=== PATIENT | male | born 1955 | race African-American/Black ===

== ENCOUNTER 2017-05-18 17:39 | Inpatient (IN) | payer SELFPAY ==
[~2017-05-18] VITALS: Ht 175.3 cm; Wt 79.4 kg
[~2017-05-18 17:39] MED LIST: FUROSEMIDE20 M1 ORAL; KEPPRA500 M4 ORAL; NKM; PROPRANOLOL HCL10 MG ORAL; SPIRONALACTONE; SPIRONOLACTONE50 MG ORAL; UNOBMED; nka
[2017-05-18 18:10] VITALS: BP 168/68
--- NOTE | 2017-05-18 18:19 | Emergency Room Report ---
History of Present Illness General Chief Complaint: Altered Level of Consciousness Source: Patient, EMS Present Illness HPI 62-year-old male, unknown past medical history, been found on the street and brought by EMS. EMS states that he was found on the ground, awake, but not giving any information. Patient states that he lives alone, denies having any current medical problems, states that he used to take medication for seizure in the past. He is currently oriented to person only, does not know why he is in the emergency room. Currently denying any complaints. Denies any headache blurry vision nausea vomiting chest pain shortness of breath Allergies: Coded Allergies: No Known Allergies (Verified , 02/18/06) Patient History Past Medical History: see triage record Past Surgical History: none Pertinent Family History: none Reviewed Nursing Documentation: PMH: Agreed, PSxH: Agreed Nursing Documentation-PMH Hx Cardiac Problems: No Hx Hypertension: Yes Hx Asthma: Yes Hx Cancer: No Hx Gastrointestinal Problems: No Hx Neurological Problems: No - ? Hx Weakness: Yes Review of Systems All Other Systems: negative except mentioned in HPI Physical Exam Vital Signs Date Time Temp Pulse Resp B/P (MAP) Pulse Ox O2 Delivery O2 Flow Rate FiO2 05/18/17 17:41 98.1 110 18 160/100 98 Room Air Sp02 EP Interpretation: reviewed, normal General Appearance: other - Disheveled middle-aged male, confused, not acute distress Head: normocephalic, atraumatic Eyes: bilateral eye normal inspection, bilateral eye PERRL, bilateral eye EOMI ENT: normal ENT inspection, normal pharynx, normal voice, moist mucus membranes Neck: normal inspection, full range of motion, supple Respiratory: normal inspection, lungs clear, normal breath sounds, no respiratory distress, no retraction, no wheezing, speaking full sentences, chest symmetrical Cardiovascular #1: normal inspection, regular rate, rhythm, normal capillary refill Cardiovascular #2: 2+ radial (R), 2+ radial (L) Gastrointestinal: normal inspection, non tender, soft, non-distended, no guarding Musculoskeletal: normal inspection, back normal, normal range of motion, non- tender Neurologic: other - Oriented to person only, moving all 4 extremities spontaneously, good strength, cranial nerves are all intact Skin: normal inspection, normal color, no rash, warm/dry, well hydrated, normal turgor Medical Decision Making Diagnostic Impression: Primary Impression: Altered mental status ER Course 62-year-old male, found on ground, confused DDX hypovolemic/dehydration vs. cardiac vs. metabolic (hypoglycemia, hypoxia), vs neuro (seizure, CVA, intracranial bleed) versus psych versus alcohol or drug intoxication Plan: bgm, cbc, bmp, ekg, cxr CT head Toxicology labs ER course: Patient has remained hemodynamically stable during ED stay. Remains confused Disposition: Patient requires admission to telemetry. D/W hospitalist Please note that this Emergency Department Report was dictated using [employer] technology software, occasionally this can lead to erroneous entry secondary to interpretation by the dictation equipment EKG Diagnostic Results EP Interpretation: Yes Rate: Tachycardic Rhythm: NSR ST Segments: No acute changes ASA given to patient: No Rhythm Strip EP Interpretation: Yes Rate: 98 Rhythm: NSR, no PVCs, no ectopy Laboratory Tests Test 05/18/17 23:00 05/19/17 04:10 05/19/17 13:18 Arterial Blood pH 7.099 (7.350-7.450) Arterial Blood Partial Pressure CO2 45.4 mmHg (35.0-45.0) H Arterial Blood Partial Pressure O2 63.7 mmHg (75.0-100.0) L Arterial Blood HCO3 13.7 mmol/L (22.0-26.0) L Arterial Blood Oxygen Saturation 81.7 % (92.0-98.0) L Arterial Blood Base Excess -15.6 Yonathan Test Positive White Blood Count 7.2 K/UL (4.8-10.8) Red Blood Count 4.00 M/UL (4.70-6.10) L Hemoglobin 12.0 G/DL (14.2-18.0) L Hematocrit 36.9 % (42.0-52.0) L Mean Corpuscular Volume 92 FL (80-99) Mean Corpuscular Hemoglobin 29.9 PG (27.0-31.0) Mean Corpuscular Hemoglobin Concent 32.4 G/DL (32.0-36.0) Red Cell Distribution Width 15.2 % (11.6-14.8) H Platelet Count 97 K/UL (150-450) L Mean Platelet Volume 6.8 FL (6.5-10.1) Neutrophils (%) (Auto) % (45.0-75.0) Lymphocytes (%) (Auto) % (20.0-45.0) Monocytes (%) (Auto) % (1.0-10.0) Eosinophils (%) (Auto) % (0.0-3.0) Basophils (%) (Auto) % (0.0-2.0) Prothrombin Time 11.1 SEC (9.30-11.50) Prothrombin Time INR 1.1 (0.9-1.1) PTT 29 SEC (23-33) Sodium Level 135 MMOL/L (136-145) L Potassium Level 4.1 MMOL/L (3.5-5.1) Chloride Level 98 MMOL/L (98-107) Carbon Dioxide Level 24 MMOL/L (21-32) Anion Gap 13 mmol/L (5-15) Blood Urea Nitrogen 15 mg/dL (7-18) Creatinine 1.3 MG/DL (0.55-1.30) Estimate Glomerular Filtration Rate > 60 mL/min (>60) Glucose Level 110 MG/DL (74-106) H Calcium Level 9.2 MG/DL (8.5-10.1) Phosphorus Level 2.5 MG/DL (2.5-4.9) Magnesium Level 1.9 MG/DL (1.8-2.4) Total Bilirubin 1.1 MG/DL (0.2-1.0) H Direct Bilirubin 0.3 MG/DL (0.0-0.3) Aspartate Amino Transferase (AST) 51 U/L (15-37) H Alanine Aminotransferase (ALT) 24 U/L (12-78) Alkaline Phosphatase 140 U/L (46-116) H Total Protein 8.0 G/DL (6.4-8.2) Albumin 3.6 G/DL (3.4-5.0) Globulin 4.4 g/dL Albumin/Globulin Ratio 0.8 (1.0-2.7) L Ammonia 42 umol/L (11-32) H CT/MRI/US Diagnostic Results CT/MRI/US Diagnostic Results : Imaging Test Ordered: CT Head Impression Impression: No acute intracranial bleed, mass effect or edema. Moderate atrophy of the brain. Evidence of chronic small vessel disease involving white matter tracts. [facility] has communicated the preliminary results to the Emergency Department. Their findings are largely concordant with this report. Last Vital Signs Date Time Temp Pulse Resp B/P (MAP) Pulse Ox O2 Delivery O2 Flow Rate FiO2 05/18/17 17:41 98.1 110 18 160/100 98 Room Air Lesly Morris M.D. May 18, 2017 18:19
[2017-05-18 19:54] LABS: APPEARANCE,URINE CLEAR; KETONES,URINE 2+ (NEGATIVE); LEUKOCYTE ESTERASE ,URINE NEGATIVE (NEGATIVE); NITRITE,URINE NEGATIVE (NEGATIVE); PH,URINE 5 (4.5-8.0); PROTEIN,URINE 4+ (NEGATIVE); UROBILINOGEN,URINE 1 MG/DL (0.0-1.0)
[2017-05-18 20:10] VITALS: BP 162/89
[2017-05-18 20:10] LABS: BACTERIA,URINE FEW /HPF; SQUAMOUS EPITHELIAL CELL,UR FEW /LPF (NONE/OCC); WBC,URINE 0-2 /HPF (0 - 0)
[2017-05-18 20:15] LABS: MEAN CORPUSCULAR HEMOGLOBIN 28.6 PG (27.0-31.0); MEAN CORPUSCULAR HGB CONC 30.3 G/DL (32.0-36.0); MEAN CORPUSCULAR VOLUME 94 FL (80-99); MEAN PLATELET VOLUME 5.1 FL (6.5-10.1); PLATELET COUNT 101 K/UL (150-450); RED BLOOD COUNT 4.84 M/UL (4.70-6.10); RED CELL DISTRIBUTION WIDTH 15.2 % (11.6-14.8)
[2017-05-18 20:31] LABS: BAND NEUTROPHILS % (MANUAL) 0 % (0-8); BASOPHILS % (MANUAL) 0 % (0-2); EOSINOPHILS % (MANUAL) 1 % (0-3); LYMPHOCYTES % (MANUAL) 6 % (20-45); NEUTROPHILS % (MANUAL) 92 % (45-75); PLATELET ESTIMATE DECREASED; PLATELET MORPHOLOGY NORMAL; TOTAL CELLS COUNTED 100
[2017-05-18] MEDS ORDERED: Miralax 17gm pkt ORAL PRN (21:30)
[2017-05-18] MEDS ORDERED: Mylanta II UD 30ml ORAL PRN (21:30)
[2017-05-18] MEDS ORDERED: LORazepam Inj 2mg/ml 1ml IV PRN (21:30)
--- NOTE | 2017-05-18 21:47 | History and Physical ---
History of Present Illness General Date patient seen: May 18, 2017 Reason for Hospitalization: Altered Level of Consciousness Present Illness HPI 62-year-old male, unknown past medical history, been found on the street and brought by EMS. EMS states that he was found on the ground, awake, but not giving any information. Patient states that he lives alone, denies having any current medical problems, states that he used to take medication for seizure in the past. Pt is admitted for acute encephalopathy. Allergies: Coded Allergies: No Known Allergies (Verified , 02/18/06) Medication History Scheduled No Known Medications* (NKM - No Known Medications*), 0 ., (Reported) Discontinued Medications Levetiracetam (Keppra), 500 MG ORAL EVERY 12 HOURS, (Reported) Discontinued Reason: Pt stopped taking med Unable to Obtain Medications (Unable To Obtain Meds), (Reported) Discontinued Reason: Pt stopped taking med [Spironalactone], (Reported) Discontinued Reason: Pt stopped taking med Patient History Healthcare decision maker N Resuscitation status Advanced Directive on File Past Medical/Surgical History Past Medical/Surgical History: (1) liver cirrhosis Review of Systems All Other Systems: negative except mentioned in HPI Physical Exam General Appearance: WD/WN Lines, tubes and drains: peripheral HEENT: normocephalic, atraumatic Neck: non-tender, normal alignment Respiratory/Chest: chest wall non-tender, lungs clear Cardiovascular/Chest: normal peripheral pulses, normal rate Abdomen: normal bowel sounds, non tender Genitourinary/Rectal: normal genital exam Extremities: normal range of motion Skin Exam: normal pigmentation Last 24 Hour Vital Signs Date Time Temp Pulse Resp B/P (MAP) Pulse Ox O2 Delivery O2 Flow Rate FiO2 05/18/17 18:10 98.0 88 22 168/68 95 Room Air 05/18/17 17:41 98.1 110 18 160/100 98 Room Air Intake and Output 05/18/17 05/19/17 19:00 07:00 Intake Total 0 ml Balance 0 ml Intake Oral 0 ml Laboratory Tests Test 05/18/17 19:39 05/18/17 19:50 Urine Color Yellow Urine Appearance Clear Urine pH 5 (4.5-8.0) Urine Specific [place] 1.025 (1.005-1.035) Urine Protein 4+ (NEGATIVE) H Urine Glucose (UA) Negative (NEGATIVE) Urine Ketones 2+ (NEGATIVE) H Urine Occult Blood 4+ (NEGATIVE) H Urine Nitrite Negative (NEGATIVE) Urine Bilirubin Negative (NEGATIVE) Urine Urobilinogen 1 MG/DL (0.0-1.0) H Urine Leukocyte Esterase Negative (NEGATIVE) Urine RBC 5-10 /HPF (0 - 0) H Urine WBC 0-2 /HPF (0 - 0) Urine Squamous Epithelial Cells Few /LPF (NONE/OCC) Urine Bacteria Few /HPF (NONE) Urine Opiates Screen Negative (NEGATIVE) Urine Barbiturates Screen Negative (NEGATIVE) Phencyclidine (PCP) Screen Negative (NEGATIVE) Urine Amphetamines Screen Negative (NEGATIVE) Urine Benzodiazepines Screen Negative (NEGATIVE) Urine Cocaine Screen Negative (NEGATIVE) Urine Marijuana (THC) Screen Negative (NEGATIVE) White Blood Count 12.0 K/UL (4.8-10.8) H Red Blood Count 4.84 M/UL (4.70-6.10) Hemoglobin 13.8 G/DL (14.2-18.0) L Hematocrit 45.7 % (42.0-52.0) Mean Corpuscular Volume 94 FL (80-99) Mean Corpuscular Hemoglobin 28.6 PG (27.0-31.0) Mean Corpuscular Hemoglobin Concent 30.3 G/DL (32.0-36.0) L Red Cell Distribution Width 15.2 % (11.6-14.8) H Platelet Count 101 K/UL (150-450) L Mean Platelet Volume 5.1 FL (6.5-10.1) L Neutrophils (%) (Auto) % (45.0-75.0) Lymphocytes (%) (Auto) % (20.0-45.0) Monocytes (%) (Auto) % (1.0-10.0) Eosinophils (%) (Auto) % (0.0-3.0) Basophils (%) (Auto) % (0.0-2.0) Differential Total Cells Counted 100 Neutrophils % (Manual) 92 % (45-75) H Lymphocytes % (Manual) 6 % (20-45) L Monocytes % (Manual) 1 % (1-10) Eosinophils % (Manual) 1 % (0-3) Basophils % (Manual) 0 % (0-2) Band Neutrophils 0 % (0-8) Platelet Estimate Decreased L Platelet Morphology Normal Height (Feet): 5 Height (Inches): 9.00 Weight (Pounds): 175 Medications Current Medications Medications (Trade) Dose Ordered Sig/Yoanna Route PRN Reason Start Time Stop Time Status Last Admin Dose Admin Acetaminophen (Tylenol) 650 mg Q4H PRN ORAL fever 05/18/17 21:30 06/17/17 21:29 Al Hydroxide/Mg Hydroxide (Mylanta II) 30 ml Q6H PRN ORAL dyspepsia 05/18/17 21:30 06/17/17 21:29 Dextrose (Dextrose 50%) STAT PRN IV Hypoglycemia 05/18/17 21:30 06/17/17 21:29 Heparin Sodium (Porcine) (Heparin 5000 units/ml) 5,000 units EVERY 12 HOURS SUBQ 05/19/17 09:00 06/18/17 08:59 Lorazepam (Ativan 2mg/ml 1ml) 2 mg Q1H PRN IV seizures 05/18/17 21:30 05/25/17 21:29 Morphine Sulfate (Morphine Sulfate) 1 mg Q4H PRN IVP For Pain 05/18/17 21:30 05/25/17 21:29 Ondansetron HCl (Zofran) 4 mg Q6H PRN IVP Nausea & Vomiting 05/18/17 21:30 06/17/17 21:29 Polyethylene Glycol (Miralax) 17 gm HSPRN PRN ORAL Constipation 05/18/17 21:30 06/17/17 21:29 Zolpidem Tartrate (Ambien) 5 mg HSPRN PRN ORAL Insomnia 05/18/17 21:30 05/25/17 21:29 Assessment/Plan Problem List: (1) Altered mental status ICD Codes: R41.82 - Altered mental status, unspecified SNOMED: 606101776 (2) liver cirrhosis (3) History of seizure ICD Codes: Z87.898 - Personal history of other specified conditions SNOMED: 831990569 Assessment/Plan seizure precaution Neuro evaluation symptomatic treatment. LAURA CHAMPION May 18, 2017 21:47
[2017-05-18 22:01] LABS: ALANINE AMINOTRANSFERASE 26 U/L (12-78); ALBUMIN/GLOBULIN RATIO 0.7 (1.0-2.7); ALCOHOL < 3 mg/dL; ANION GAP 12 mmol/L (5-15); ASPARTATE AMINO TRANSFERASE 52 U/L (15-37); CALCIUM 9.4 MG/DL (8.5-10.1); CARBON DIOXIDE 25 MMOL/L (21-32); CHLORIDE 101 MMOL/L (98-107); CREATININE 1.3 MG/DL (0.55-1.30); GLOMERULAR FILTRATION RATE > 60 mL/min (>60); POTASSIUM 5.3 MMOL/L (3.5-5.1); SODIUM 138 MMOL/L (136-145); TOTAL PROTEIN 8.7 G/DL (6.4-8.2)
[2017-05-18 22:02] LABS: ACETAMINOPHEN < 2 MCG/ML (10-30); BILIRUBIN,DIRECT 0.3 MG/DL (0.0-0.3)
[2017-05-18 22:10] VITALS: BP 159/89
[2017-05-18 23:49] LABS: ABG PCO2 45.4 mmHg (35.0-45.0)
[2017-05-18 23:50] LABS: ABG ALLEN TEST POSITIVE; ABG BASE EXCESS -15.6
[2017-05-19] MEDS: Morphine Sulfate 2mg/ml Inj IVP PRN ×2 (01:14→05:17)
[2017-05-19 04:00] VITALS: BP 168/97
[2017-05-19 06:13] LABS: MEAN CORPUSCULAR HEMOGLOBIN 29.9 PG (27.0-31.0); MEAN CORPUSCULAR HGB CONC 32.4 G/DL (32.0-36.0); MEAN CORPUSCULAR VOLUME 92 FL (80-99); MEAN PLATELET VOLUME 6.8 FL (6.5-10.1); PLATELET COUNT 97 K/UL (150-450); RED CELL DISTRIBUTION WIDTH 15.2 % (11.6-14.8); WHITE BLOOD COUNT 7.2 K/UL (4.8-10.8)
[2017-05-19 06:50] LABS: INR 1.1 (0.9-1.1); PROTHROMBIN TIME 11.1 SEC (9.30-11.50)
[2017-05-19 07:20] LABS: ALANINE AMINOTRANSFERASE 24 U/L (12-78); ALBUMIN/GLOBULIN RATIO 0.8 (1.0-2.7); ANION GAP 13 mmol/L (5-15); ASPARTATE AMINO TRANSFERASE 51 U/L (15-37); CALCIUM 9.2 MG/DL (8.5-10.1); CARBON DIOXIDE 24 MMOL/L (21-32); CHLORIDE 98 MMOL/L (98-107); CREATININE 1.3 MG/DL (0.55-1.30); GLOMERULAR FILTRATION RATE > 60 mL/min (>60); MAGNESIUM 1.9 MG/DL (1.8-2.4); PHOSPHORUS 2.5 MG/DL (2.5-4.9); POTASSIUM 4.1 MMOL/L (3.5-5.1); SODIUM 135 MMOL/L (136-145)
[2017-05-19 07:34] LABS: BILIRUBIN,DIRECT 0.3 MG/DL (0.0-0.3)
[2017-05-19] MEDS: Heparin 5000 units/ml inj SUBQ SCH ×2 (08:27→22:00)
[2017-05-19 08:51] VITALS: BP 147/90
[2017-05-19] MEDS ORDERED: Morphine Sulfate 2mg/ml Inj IVP PRN (09:30)
--- NOTE | 2017-05-19 10:17 | Diagnostic Imaging Report ---
Indication: Altered mental status Technique: Contiguous 5 mm thick transaxial imaging of the head obtained in a Siemens Sensation [address] scanner. Soft tissue and bone windows generated. Automatic Exposure Control was utilized. Total Dose length Product (DLP): [address] Dose Index Volume (CTDIvol): 70.38, 0.15 mGy Comparison: 05/06/16 Findings: There is moderate prominence of the ventricles, basal cisterns, and cerebral sulci consistent with atrophy. Moderate, nonspecific, white matter hypoattenuation is noted throughout the brain consistent with chronic small vessel disease. There is no midline shift, edema, acute hemorrhage, mass effect, or abnormal extra-axial fluid collections. Bones and extra osseous soft tissues are unremarkable. Impression: No acute intracranial bleed, mass effect or edema. Moderate atrophy of the brain. Evidence of chronic small vessel disease involving white matter tracts. [facility] has communicated the preliminary results to the Emergency Department. Their findings are largely concordant with this report. The CT scanner at [facility] is accredited by the [employer] and the scans are performed using dose optimization techniques as appropriate to a performed exam including Automatic Exposure control.
[2017-05-19 11:32] VITALS: BP 153/104
[2017-05-19] MEDS ORDERED: LORazepam Inj 2mg/ml 1ml IV PRN (13:30)
--- NOTE | 2017-05-19 13:30 | Pulmonology Progress Note ---
Assessment/Plan Problems: (1) Altered mental status (2) liver cirrhosis (3) History of seizure Assessment/Plan neuro evaluation restart Keppra Ativan Prn Subjective ROS Limited/Unobtainable: No Interval Events: had one episode of seizures last night Allergies: Coded Allergies: No Known Allergies (Verified , 02/18/06) Objective Last 24 Hour Vital Signs Date Time Temp Pulse Resp B/P (MAP) Pulse Ox O2 Delivery O2 Flow Rate FiO2 05/19/17 11:32 98.3 92 21 153/104 99 Room Air 05/19/17 08:51 98.4 92 20 147/90 92 Room Air 05/19/17 04:00 98.6 88 19 168/97 97 Room Air 05/18/17 22:40 98.0 93 19 159/89 100 Room Air 05/18/17 22:10 97.9 93 19 159/89 100 Room Air 05/18/17 20:10 97.9 84 21 162/89 95 Room Air 05/18/17 18:10 98.0 88 22 168/68 95 Room Air 05/18/17 17:41 98.1 110 18 160/100 98 Room Air Intake and Output 05/19/17 05/20/17 19:00 07:00 Intake Total 760 ml Balance 760 ml Intake Oral 760 ml General Appearance: WD/WN HEENT: normocephalic, atraumatic Respiratory/Chest: chest wall non-tender, lungs clear Cardiovascular: normal peripheral pulses, normal rate Abdomen: normal bowel sounds, soft, non tender Genitourinary: normal external genitalia Extremities: no clubbing 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, no motor/sensory deficits Laboratory Tests 05/18/17 19:39: Urine Color Yellow, Urine Appearance Clear, Urine pH 5, Urine Specific [place] 1.025, Urine Protein 4+H, Urine Glucose (UA) Negative, Urine Ketones 2+H, Urine Occult Blood 4+H, Urine Nitrite Negative, Urine Bilirubin Negative, Urine Urobilinogen 1H, Urine Leukocyte Esterase Negative, Urine RBC 5-10H, Urine WBC 0 -2, Urine Squamous Epithelial Cells Few, Urine Bacteria Few, Urine Opiates Screen Negative, Urine Barbiturates Screen Negative, Phencyclidine (PCP) Screen Negative, Urine Amphetamines Screen Negative, Urine Benzodiazepines Screen Negative, Urine Cocaine Screen Negative, Urine Marijuana (THC) Screen Negative 05/18/17 19:50: White Blood Count 12.0H, Red Blood Count 4.84, Hemoglobin 13.8L, Hematocrit 45.7 , Mean Corpuscular Volume 94, Mean Corpuscular Hemoglobin 28.6, Mean Corpuscular Hemoglobin Concent 30.3L, Red Cell Distribution Width 15.2H, Platelet Count 101L, Mean Platelet Volume 5.1L, Neutrophils (%) (Auto) , Lymphocytes (%) (Auto) , Monocytes (%) (Auto) , Eosinophils (%) (Auto) , Basophils (%) (Auto) , Differential Total Cells Counted 100, Neutrophils % ( Manual) 92H, Lymphocytes % (Manual) 6L, Monocytes % (Manual) 1, Eosinophils % ( Manual) 1, Basophils % (Manual) 0, Band Neutrophils 0, Platelet Estimate DecreasedL, Platelet Morphology Normal 05/18/17 21:32: Sodium Level 138, Potassium Level 5.3H, Chloride Level 101, Carbon Dioxide Level 25, Anion Gap 12, Blood Urea Nitrogen 13, Creatinine 1.3, Estimat Glomerular Filtration Rate > 60, Glucose Level 127H, Calcium Level 9.4, Total Bilirubin 1.1H, Direct Bilirubin 0.3, Aspartate Amino Transf (AST/SGOT) 52H, Alanine Aminotransferase (ALT/SGPT) 26, Alkaline Phosphatase 152H, Total Creatine Kinase 381H, Total Protein 8.7H, Albumin 3.7, Globulin 5.0, Albumin/ Globulin Ratio 0.7L, Salicylates Level 1.3L, Acetaminophen Level < 2L, Serum Alcohol < 3 05/18/17 23:00: Arterial Blood pH 7.099*L, Arterial Blood Partial Pressure CO2 45.4H, Arterial Blood Partial Pressure O2 63.7L, Arterial Blood HCO3 13.7L, Arterial Blood Oxygen Saturation 81.7L, Arterial Blood Base Excess -15.6, Yonathan Test Positive 05/19/17 04:10: White Blood Count 7.2, Red Blood Count 4.00L, Hemoglobin 12.0L, Hematocrit 36.9L , Mean Corpuscular Volume 92, Mean Corpuscular Hemoglobin 29.9, Mean Corpuscular Hemoglobin Concent 32.4, Red Cell Distribution Width 15.2H, Platelet Count 97L, Mean Platelet Volume 6.8, Neutrophils (%) (Auto) , Lymphocytes (%) (Auto) , Monocytes (%) (Auto) , Eosinophils (%) (Auto) , Basophils (%) (Auto) , Prothrombin Time 11.1, Prothromb Time International Ratio 1.1, Activated Partial Thromboplast Time 29, Sodium Level 135L, Potassium Level 4.1, Chloride Level 98, Carbon Dioxide Level 24, Anion Gap 13, Blood Urea Nitrogen 15, Creatinine 1.3, Estimat Glomerular Filtration Rate > 60, Glucose Level 110H, Calcium Level 9.2, Phosphorus Level 2.5, Magnesium Level 1.9, Total Bilirubin 1.1H, Direct Bilirubin 0.3, Aspartate Amino Transf (AST/SGOT) 51H, Alanine Aminotransferase (ALT/SGPT) 24, Alkaline Phosphatase 140H, Total Protein 8.0, Albumin 3.6, Globulin 4.4, Albumin/Globulin Ratio 0.8L Current Medications Medications (Trade) Dose Ordered Sig/Yoanna Route PRN Reason Start Time Stop Time Status Last Admin Dose Admin Acetaminophen (Tylenol) 650 mg Q4H PRN ORAL fever 05/18/17 21:30 06/17/17 21:29 05/19/17 06:11 Al Hydroxide/Mg Hydroxide (Mylanta II) 30 ml Q6H PRN ORAL dyspepsia 05/18/17 21:30 06/17/17 21:29 Dextrose (Dextrose 50%) STAT PRN IV Hypoglycemia 05/18/17 21:30 06/17/17 21:29 Heparin Sodium (Porcine) (Heparin 5000 units/ml) 5,000 units EVERY 12 HOURS SUBQ 05/19/17 09:00 06/18/17 08:59 Lorazepam (Ativan 2mg/ml 1ml) 2 mg Q1H PRN IV seizures 05/18/17 21:30 05/25/17 21:29 Morphine Sulfate (Morphine Sulfate) 4 mg Q4H PRN IVP For Pain 05/19/17 09:30 05/26/17 09:29 Ondansetron HCl (Zofran) 4 mg Q6H PRN IVP Nausea & Vomiting 05/18/17 21:30 06/17/17 21:29 05/19/17 00:56 Polyethylene Glycol (Miralax) 17 gm HSPRN PRN ORAL Constipation 05/18/17 21:30 06/17/17 21:29 Zolpidem Tartrate (Ambien) 5 mg HSPRN PRN ORAL Insomnia 05/18/17 21:30 05/25/17 21:29 LAURA CHAMPION May 19, 2017 13:30
--- NOTE | 2017-05-19 14:37 | Neurology Progress Note ---
Interim History Interim History ROS Limited/Unobtainable: No Objective Physical Exam Last Vital Signs Date Time Temp Pulse Resp B/P (MAP) Pulse Ox O2 Delivery O2 Flow Rate FiO2 05/19/17 11:32 98.3 92 21 153/104 99 Room Air Laboratory Tests Test 05/18/17 19:39 05/18/17 19:50 05/18/17 21:32 05/18/17 23:00 Urine Color Yellow Urine Appearance Clear Urine pH 5 (4.5-8.0) Urine Specific [place] 1.025 (1.005-1.035) Urine Protein 4+ (NEGATIVE) H Urine Glucose (UA) Negative (NEGATIVE) Urine Ketones 2+ (NEGATIVE) H Urine Occult Blood 4+ (NEGATIVE) H Urine Nitrite Negative (NEGATIVE) Urine Bilirubin Negative (NEGATIVE) Urine Urobilinogen 1 MG/DL (0.0-1.0) H Urine Leukocyte Esterase Negative (NEGATIVE) Urine RBC 5-10 /HPF (0 - 0) H Urine WBC 0-2 /HPF (0 - 0) Urine Squamous Epithelial Cells Few /LPF (NONE/OCC) Urine Bacteria Few /HPF (NONE) Urine Opiates Screen Negative (NEGATIVE) Urine Barbiturates Screen Negative (NEGATIVE) Phencyclidine (PCP) Screen Negative (NEGATIVE) Urine Amphetamines Screen Negative (NEGATIVE) Urine Benzodiazepines Screen Negative (NEGATIVE) Urine Cocaine Screen Negative (NEGATIVE) Urine Marijuana (THC) Screen Negative (NEGATIVE) White Blood Count 12.0 K/UL (4.8-10.8) H Red Blood Count 4.84 M/UL (4.70-6.10) Hemoglobin 13.8 G/DL (14.2-18.0) L Hematocrit 45.7 % (42.0-52.0) Mean Corpuscular Volume 94 FL (80-99) Mean Corpuscular Hemoglobin 28.6 PG (27.0-31.0) Mean Corpuscular Hemoglobin Concent 30.3 G/DL (32.0-36.0) L Red Cell Distribution Width 15.2 % (11.6-14.8) H Platelet Count 101 K/UL (150-450) L Mean Platelet Volume 5.1 FL (6.5-10.1) L Neutrophils (%) (Auto) % (45.0-75.0) Lymphocytes (%) (Auto) % (20.0-45.0) Monocytes (%) (Auto) % (1.0-10.0) Eosinophils (%) (Auto) % (0.0-3.0) Basophils (%) (Auto) % (0.0-2.0) Differential Total Cells Counted 100 Neutrophils % (Manual) 92 % (45-75) H Lymphocytes % (Manual) 6 % (20-45) L Monocytes % (Manual) 1 % (1-10) Eosinophils % (Manual) 1 % (0-3) Basophils % (Manual) 0 % (0-2) Band Neutrophils 0 % (0-8) Platelet Estimate Decreased L Platelet Morphology Normal Sodium Level 138 MMOL/L (136-145) Potassium Level 5.3 MMOL/L (3.5-5.1) H Chloride Level 101 MMOL/L (98-107) Carbon Dioxide Level 25 MMOL/L (21-32) Anion Gap 12 mmol/L (5-15) Blood Urea Nitrogen 13 mg/dL (7-18) Creatinine 1.3 MG/DL (0.55-1.30) Estimat Glomerular Filtration Rate > 60 mL/min (>60) Glucose Level 127 MG/DL (74-106) H Calcium Level 9.4 MG/DL (8.5-10.1) Total Bilirubin 1.1 MG/DL (0.2-1.0) H Direct Bilirubin 0.3 MG/DL (0.0-0.3) Aspartate Amino Transf (AST/SGOT) 52 U/L (15-37) H Alanine Aminotransferase (ALT/SGPT) 26 U/L (12-78) Alkaline Phosphatase 152 U/L (46-116) H Total Creatine Kinase 381 U/L (26-308) H Total Protein 8.7 G/DL (6.4-8.2) H Albumin 3.7 G/DL (3.4-5.0) Globulin 5.0 g/dL Albumin/Globulin Ratio 0.7 (1.0-2.7) L Salicylates Level 1.3 ug/mL (2.8-20) L Acetaminophen Level < 2 MCG/ML (10-30) L Serum Alcohol < 3 mg/dL Arterial Blood pH 7.099 (7.350-7.450) Arterial Blood Partial Pressure CO2 45.4 mmHg (35.0-45.0) H Arterial Blood Partial Pressure O2 63.7 mmHg (75.0-100.0) L Arterial Blood HCO3 13.7 mmol/L (22.0-26.0) L Arterial Blood Oxygen Saturation 81.7 % (92.0-98.0) L Arterial Blood Base Excess -15.6 Yonathan Test Positive Test 05/19/17 04:10 White Blood Count 7.2 K/UL (4.8-10.8) Red Blood Count 4.00 M/UL (4.70-6.10) L Hemoglobin 12.0 G/DL (14.2-18.0) L Hematocrit 36.9 % (42.0-52.0) L Mean Corpuscular Volume 92 FL (80-99) Mean Corpuscular Hemoglobin 29.9 PG (27.0-31.0) Mean Corpuscular Hemoglobin Concent 32.4 G/DL (32.0-36.0) Red Cell Distribution Width 15.2 % (11.6-14.8) H Platelet Count 97 K/UL (150-450) L Mean Platelet Volume 6.8 FL (6.5-10.1) Neutrophils (%) (Auto) % (45.0-75.0) Lymphocytes (%) (Auto) % (20.0-45.0) Monocytes (%) (Auto) % (1.0-10.0) Eosinophils (%) (Auto) % (0.0-3.0) Basophils (%) (Auto) % (0.0-2.0) Prothrombin Time 11.1 SEC (9.30-11.50) Prothromb Time International Ratio 1.1 (0.9-1.1) Activated Partial Thromboplast Time 29 SEC (23-33) Sodium Level 135 MMOL/L (136-145) L Potassium Level 4.1 MMOL/L (3.5-5.1) Chloride Level 98 MMOL/L (98-107) Carbon Dioxide Level 24 MMOL/L (21-32) Anion Gap 13 mmol/L (5-15) Blood Urea Nitrogen 15 mg/dL (7-18) Creatinine 1.3 MG/DL (0.55-1.30) Estimat Glomerular Filtration Rate > 60 mL/min (>60) Glucose Level 110 MG/DL (74-106) H Calcium Level 9.2 MG/DL (8.5-10.1) Phosphorus Level 2.5 MG/DL (2.5-4.9) Magnesium Level 1.9 MG/DL (1.8-2.4) Total Bilirubin 1.1 MG/DL (0.2-1.0) H Direct Bilirubin 0.3 MG/DL (0.0-0.3) Aspartate Amino Transf (AST/SGOT) 51 U/L (15-37) H Alanine Aminotransferase (ALT/SGPT) 24 U/L (12-78) Alkaline Phosphatase 140 U/L (46-116) H Total Protein 8.0 G/DL (6.4-8.2) Albumin 3.6 G/DL (3.4-5.0) Globulin 4.4 g/dL Albumin/Globulin Ratio 0.8 (1.0-2.7) L Impression/Recommendations Problems: (1) chronic seizure disorder. exacerbation (2) noncompliance (3) HTN (hypertension), malignant (4) liver cirrhosis Status: unchanged Recommendations # [id number] TERRY MATTHEWS May 19, 2017 14:37
--- NOTE | 2017-05-19 15:38 | Cardiology Report ---
APPROVED REPORT EKG Measurement Heart [id number] Sinus tachycardia Possible Inferior infarct, age undetermined Possible Anterior infarct, age undetermined Abnormal ECG
[2017-05-19 16:00] VITALS: BP 161/100
--- NOTE | 2017-05-19 18:30 | Consultation ---
DATE OF CONSULTATION: 05/19/2017 NEUROLOGICAL CONSULTATION CONSULTING PHYSICIAN: Saul Corrales M.D. REQUESTING PHYSICIAN: Venus Garcia M.D. HISTORY OF PRESENT ILLNESS: This 62-year-old man seen in neurological consultation to evaluate the seizure disorder. According to the report by ambulance, the patient was found to be on the street and as per witnesses, he fell down and was having a generalized seizure. On arrival of paramedics, he was still postictal and was alert and oriented to name only. There were no obvious signs of injury. At this time, he was increasingly more alert. His vital signs included blood pressure 182/114, heart rate of 123, respirations 16. These went down to 164/101 and still heart rate of 111. On arrival, blood pressure remained high at 160/100 and a heart rate of 90. On admission, he was quite confused, would know why he is in the hospital, but he had no complaints. His toxicology lab was negative. Lab studies included potassium 5.3, glucose 127, total bilirubin of 1.1, and AST of 52. Elevated CPK 361 and total protein of 8.7. Coagulation panel was negative. Urinalysis, 2+ ketones and 4+ protein. His CBC study with elevated WBC 12.0 and platelet count 101. Blood gases with pH 7.099 and pCO2 44. CAT scan of the brain revealed a chronic small vessel disease involving white matter tract, moderate atrophy of the brain, but no evidence of acute abnormality and no evidence of trauma. EKG, normal sinus rhythm, no PVC, no ectopy. Following admission, the patient was started on Keppra 500 mg b.i.d., p.r.n. Ativan, morphine, Zofran, and zolpidem. Last night, the patient was observed to have a brief 2 to 3 minutes of generalized seizure episode. The patient was amnestic on event. PAST MEDICAL HISTORY: The patient was able to indicate that he had been suffering from hypertension and bronchial asthma, but after having treatment, he became cured and so, he does not take any medications. He also mentioned that he had a seizure episode about 10 years ago. He has no recollection of what medication was given an d he is not sure if he ever had any more seizures. He was unable to identify that he had a seizure last night or on admission. 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 In 2016, the patient was hospitalized for recurrent seizures. He had a neurological evaluation. The history was also somewhat vague. The patient apparently had a previous seizure, which was related to alcohol abuse, but readmitted after having seizures. The patient described having liver disease and hypertension. On examination, there was an issue of recent and remote memory. He was walking somewhat with a wide base. His workup at that time included electroencephalogram revealing no ongoing seizure event and MRI of the brain, no mass lesions. The patient was found to have delirium. Apparently, he had a previous hospitalization for confusion and agitation. The patient was described as behaving in a psychotic manner. He was recommended to continue with Keppra 500 mg twice a day. ALLERGIES: None reported. SOCIAL HISTORY: The patient reports he lives alone. He has a daughter who lives in city and he has good relationship with her. FAMILY HISTORY: Unavailable. Apparently, he is unaware that someone has seizure disorder. PHYSICAL EXAMINATION: GENERAL: A well-developed, well-nourished man, not in acute distress. VITAL SIGNS: Stable, but elevated blood pressure 153/104. Temperature 98.3. HEENT: Head, normocephalic. No evidence of injuries. Eyes, ears, and throat are clear. NECK: Supple. No meningeal signs. MUSCULOSKELETAL EXAMINATION: Unremarkable. There are no deformities. Peripheral pulses 1+ and symmetric. MENTAL STATUS: The patient is alert and oriented to his name, but states his age is 56. He stated that he is unaware what place he is in now. He is unaware of having seizures. He is stating that the year is 2011. The patient admitted that he appears to have some memory problems. He was cooperative and followed command. CRANIAL NERVE II: Pupils both responding to light and accommodation. Extraocular movements intact. No nystagmus. CRANIAL NERVE V: Normal corneal responses. CRANIAL NERVE VII: No facial asymmetry. CRANIAL NERVE VIII: Grossly normal hearing. CRANIAL NERVE IX THROUGH XII: Within normal limits. MOTOR EXAMINATION: Normal muscle tone. Strength 5/5 in all extremities. No involuntary movement. Deep tendon reflexes 1+ and symmetric with downgoing toes on both sides. SENSORY EXAM: Normal to pinprick and light touch. GAIT: Slow, but stable. IMPRESSION: 1. Chronic seizure disorder exacerbation due to noncompliance. 2. Chronic psychiatric disorder, now presenting with cognitive loss. 3. Ischemic cerebrovascular disease, probably hypertensive angiopathy. 4. Hypertension, poor control. DISCUSSION: The patient is confused, disoriented, has significant cognitive deficiency, developing seizure, and apparently being noncompliant with offered treatment. He has a previously diagnosed psychiatric disorder and liver cirrhosis, probably related to previous history of alcohol abuse. The patient does not display sufficient cognitive level to live alone. 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 Meanwhile, the patient will continue with Keppra 500 mg b.i.d. and develop a better blood pressure control, which is deferred to treating physician. Thank you for allowing me to see this interesting patient in neurological consultation. Saul Corrales M.D. DR: KEO JOB#: [id number] CC:
[2017-05-19 20:57] VITALS: BP 144/90
[2017-05-19] MEDS ORDERED: Haloperidol Decanoate 50mg Inj IM PRN (21:45)
[2017-05-19] MEDS: Haloperidol 5mg/ml Inj IM PRN (21:58)
[2017-05-19] MEDS: Zolpidem 5mg tab ORAL PRN (23:47)
[2017-05-20 00:53] VITALS: BP 140/92
[2017-05-20 04:45] VITALS: BP 138/86
[2017-05-20] MEDS: Haloperidol 5mg/ml Inj IM PRN (06:04)
[2017-05-20] MEDS ORDERED: Haloperidol 5mg/ml Inj IM PRN (07:00)
[2017-05-20 08:30] VITALS: BP 142/85
[2017-05-20] MEDS: Heparin 5000 units/ml inj SUBQ SCH ×2 (09:00→20:25)
--- NOTE | 2017-05-20 11:24 | GI Initial Consult Note ---
History of Present Illness General Date patient seen: May 20, 2017 Time patient seen: 11:23 Reason for Hospitalization: Altered Level of Consciousness Referring physician: LAURA DICKSON Reason for Consultation: ANEMIA Present Illness HPI 62-year-old male, unknown past medical history, been found on the street and brought by EMS. EMS states that he was found on the ground, awake, but not giving any information. Patient states that he lives alone, denies having any current medical problems, states that he used to take medication for seizure in the past. He is currently oriented to person only, does not know why he is in the emergency room. Currently denying any complaints. Denies any headache blurry vision nausea vomiting chest pain shortness of breath GI consulted for anemia. HPI as noted above. ROS limited, patient agitated. No noted active N/V/D noted. Patient presents with mild anemia, elevated alk phos, elevated ammonia. Utox unremarkable. Unknown history of endoscopic / colonoscopies. Home Meds Reported Medications No Known Medications* (NKM - No Known Medications*) ., 0 ., 0 Refills 04/13/13 Discontinued Reported Medications Levetiracetam (KEPPRA) 500 Mg Tablet, 500 MG ORAL EVERY 12 HOURS, #60 TAB 0 Refills 05/13/16 Unable to Obtain Medications (UNABLE TO OBTAIN MEDS) 1 Ea Ea 05/06/16 [Spironalactone] No Conflict Check 06/08/13 Med list reviewed/reconciled: Yes Allergies: Coded Allergies: No Known Allergies (Verified , 02/18/06) Patient History History Provided By: Medical Record PMH Narrative Past Medical History: see triage record Past Surgical History: none Pertinent Family History: none Reviewed Nursing Documentation: PMH: Agreed, PSxH: Agreed Nursing Documentation-PMH Hx Cardiac Problems: No Hx Hypertension: Yes Hx Asthma: Yes Hx Cancer: No Hx Gastrointestinal Problems: No Hx Neurological Problems: No - ? Hx Weakness: Yes 1. Thrombocytopenia, likely secondary to underlying infection, is stable 2. Anemia secondary to chronic disease 3. Decreased hemoglobin and hematocrit, rule out gastrointestinal bleed 4. Leukopenia potentially secondary to infection vs less likely medications 5. Seizure disorder. 6. Alcohol abuse history. 7. Potential splenic sequestration. Social History: Reports: alcohol use - history of ETOH abuse Review of Systems All Other Systems: limited Physical Exam Vital Signs Date Time Temp Pulse Resp B/P (MAP) Pulse Ox O2 Delivery O2 Flow Rate FiO2 05/18/17 17:41 98.1 110 18 160/100 98 Room Air Sp02 EP Interpretation: reviewed, normal Labs Laboratory Tests Test 05/19/17 13:18 Ammonia 42 umol/L (11-32) H General Appearance: no apparent distress, alert, other - confused Head: normocephalic EENT: PERRL/EOMI, normal ENT inspection Neck: supple Respiratory: normal breath sounds, no respiratory distress Cardiovascular: normal rate Gastrointestinal: normal inspection, non tender, soft, normal bowel sounds, non -distended Rectal: deferred Genitourinary: deferred Musculoskeletal: normal inspection, back normal Neurologic: normal inspection, alert, oriented x3, responsive Psychiatric: normal inspection, judgement/insight normal, memory normal Skin: normal inspection, normal color, no rash, warm/dry, palpation normal, well hydrated Lymphatic: normal inspection, no adenopathy Current Medications Current Medications Medications (Trade) Dose Ordered Sig/Yoanna Route PRN Reason Start Time Stop Time Status Last Admin Dose Admin Acetaminophen (Tylenol) 650 mg Q4H PRN ORAL fever 05/18/17 21:30 06/17/17 21:29 05/19/17 06:11 Al Hydroxide/Mg Hydroxide (Mylanta II) 30 ml Q6H PRN ORAL dyspepsia 05/18/17 21:30 06/17/17 21:29 Amlodipine Besylate (Norvasc) 5 mg DAILY ORAL 05/20/17 09:00 06/19/17 08:59 05/20/17 11:09 Dextrose (Dextrose 50%) STAT PRN IV Hypoglycemia 05/18/17 21:30 06/17/17 21:29 Haloperidol Lactate (Haldol) 5 mg Q2H PRN IM agitation 05/20/17 07:00 06/19/17 06:59 Heparin Sodium (Porcine) (Heparin 5000 units/ml) 5,000 units EVERY 12 HOURS SUBQ 05/19/17 09:00 06/18/17 08:59 Levetiracetam (Keppra) 1,000 mg Q12HR ORAL 05/19/17 21:00 06/18/17 20:59 05/20/17 11:09 Lorazepam (Ativan 2mg/ml 1ml) 2 mg Q4H PRN IV seizure 05/19/17 13:30 05/26/17 13:29 05/19/17 23:38 Morphine Sulfate (Morphine Sulfate) 4 mg Q4H PRN IVP For Pain 05/19/17 09:30 05/26/17 09:29 Ondansetron HCl (Zofran) 4 mg Q6H PRN IVP Nausea & Vomiting 05/18/17 21:30 06/17/17 21:29 05/19/17 00:56 Polyethylene Glycol (Miralax) 17 gm HSPRN PRN ORAL Constipation 05/18/17 21:30 06/17/17 21:29 Zolpidem Tartrate (Ambien) 5 mg HSPRN PRN ORAL Insomnia 05/18/17 21:30 05/25/17 21:29 05/19/17 23:47 GI: Plan Problems: (1) liver cirrhosis (2) noncompliance (3) Combative behavior (4) Anemia Plan utox negative elevated ammonia head CT reviewed >> negative HIV neg, hepatitis panel negative (previous admission) supportive care / symptomatic treatment OB stool r/o GI bleed monitor H&H, prn transfusions bowel regime ppi adv to low sodium diet avoid ETOH fu labs, ammonia >> will consider lactulose Discussed with Dr. Arriola. Thank you for this patient referral, we will follow. Christina Hollingsworth N.P. May 20, 2017 11:24
[2017-05-20 11:45] VITALS: BP 152/87
--- NOTE | 2017-05-20 12:39 | Neurology Progress Note ---
Interim History Interim History ROS Limited/Unobtainable: Yes Complaints: none Events: became psychotic Objective Physical Exam Last Vital Signs Date Time Temp Pulse Resp B/P (MAP) Pulse Ox O2 Delivery O2 Flow Rate FiO2 05/20/17 11:09 87 148/88 05/20/17 04:45 98.7 19 96 Room Air Laboratory Tests Test 05/19/17 13:18 Ammonia 42 umol/L (11-32) H General: well developed, well nourished, no acute distress Head: normocophalic, atraumatic Neck: no rigidity Neurologic Exam Mental Status: awake, alert, other - i dont like what you do to me Speech: normal speech, no dysarthia Language: normal language, no aphasia Cranial Nerve II: no papilledema Cranial Nerves III, IV, : PERRLA, EOMI, pupils Cranial Nerve V: temporales function normal Cranial Nerve VII: normal facial expressions Cranial Nerve VIII: no nystagmus Cranial Nerve IX: gag response Cranial Nerve XI: trapezii function normal Cranial Nerve XII: tongue midline, no tongue atrophy/fasciculations Motor System: normal muscle tone, strength 5/5, no involuntary movement, no muscle wasting Sensory: normal pinprick Coordination: other Deep Tendon Reflexes: 0 bicep (L), 0 bicep (R), 0 tricep (L), 0 tricep (R), 0 brachioradialis (L), 0 brachioradialis (R), 0 knee (L), 0 knee (R), 0 ankle (L) , 0 ankle (R) Reflexes: mute plantar (L), mute plantar (R) Impression/Recommendations Problems: (1) chronic seizure disorder. exacerbation (2) noncompliance (3) HTN (hypertension), malignant (4) liver cirrhosis Status: unchanged Recommendations # [id number] now acute paranoid psychosis to see psych cont [id number] seroquel 25 bid TERRY MATTHEWS May 20, 2017 12:39
--- NOTE | 2017-05-20 12:42 | Pulmonology Progress Note ---
Assessment/Plan Problems: (1) Altered mental status (2) liver cirrhosis (3) History of seizure Assessment/Plan psych and neuro evaluation appreciated restart Keppra Subjective ROS Limited/Unobtainable: No Constitutional: Reports: no symptoms HEENT: Repors: no symptoms Respiratory: Reports: no symptoms Allergies: Coded Allergies: No Known Allergies (Verified , 02/18/06) Objective Last 24 Hour Vital Signs Date Time Temp Pulse Resp B/P (MAP) Pulse Ox O2 Delivery O2 Flow Rate FiO2 05/20/17 11:09 87 148/88 05/20/17 04:45 98.7 81 19 138/86 96 Room Air 05/20/17 00:53 98.2 99 21 140/92 99 Room Air 05/19/17 20:57 98.4 94 20 144/90 98 Room Air 05/19/17 16:00 98.7 93 20 161/100 96 Room Air 05/19/17 14:50 92 153/104 General Appearance: WD/WN HEENT: normocephalic, atraumatic Respiratory/Chest: chest wall non-tender, lungs clear Cardiovascular: normal peripheral pulses, regular rhythm Abdomen: soft, non tender Laboratory Tests 05/19/17 13:18: Ammonia 42H Current Medications Medications (Trade) Dose Ordered Sig/Yoanna Route PRN Reason Start Time Stop Time Status Last Admin Dose Admin Acetaminophen (Tylenol) 650 mg Q4H PRN ORAL fever 05/18/17 21:30 06/17/17 21:29 05/19/17 06:11 Al Hydroxide/Mg Hydroxide (Mylanta II) 30 ml Q6H PRN ORAL dyspepsia 05/18/17 21:30 06/17/17 21:29 Amlodipine Besylate (Norvasc) 5 mg DAILY ORAL 05/20/17 09:00 06/19/17 08:59 05/20/17 11:09 Dextrose (Dextrose 50%) STAT PRN IV Hypoglycemia 05/18/17 21:30 06/17/17 21:29 Haloperidol Lactate (Haldol) 5 mg Q2H PRN IM agitation 05/20/17 07:00 06/19/17 06:59 Heparin Sodium (Porcine) (Heparin 5000 units/ml) 5,000 units EVERY 12 HOURS SUBQ 05/19/17 09:00 06/18/17 08:59 Levetiracetam (Keppra) 1,000 mg Q12HR ORAL 05/19/17 21:00 06/18/17 20:59 05/20/17 11:09 Lorazepam (Ativan 2mg/ml 1ml) 2 mg Q4H PRN IV seizure 05/19/17 13:30 05/26/17 13:29 05/19/17 23:38 Morphine Sulfate (Morphine Sulfate) 4 mg Q4H PRN IVP For Pain 05/19/17 09:30 05/26/17 09:29 Ondansetron HCl (Zofran) 4 mg Q6H PRN IVP Nausea & Vomiting 05/18/17 21:30 06/17/17 21:29 05/19/17 00:56 Polyethylene Glycol (Miralax) 17 gm HSPRN PRN ORAL Constipation 05/18/17 21:30 06/17/17 21:29 Quetiapine Fumarate (SEROquel) 25 mg Q12HR ORAL 05/20/17 21:00 06/19/17 20:59 Zolpidem Tartrate (Ambien) 5 mg HSPRN PRN ORAL Insomnia 05/18/17 21:30 05/25/17 21:29 05/19/17 23:47 LAURA CHAMPION May 20, 2017 12:42
[2017-05-20 16:00] VITALS: BP 144/93
--- NOTE | 2017-05-20 16:25 | Consultation ---
History of Present Illness General Chief Complaint: Altered Level of Consciousness Referring physician: LAURA DICKSON Reason for Consultation: ANEMIA Present Illness HPI 62-year-old male, unknown past medical history, been found on the street and brought by EMS. EMS states that he was found on the ground, awake, but not giving any information. During the eval he was uncooperative and was not providing hx. he was agitated last night and was irrational and attempted to leave to leave. Allergies: Coded Allergies: No Known Allergies (Verified , 02/18/06) Medication History Scheduled No Known Medications* (NKM - No Known Medications*), 0 ., (Reported) Discontinued Medications Levetiracetam (Keppra), 500 MG ORAL EVERY 12 HOURS, (Reported) Discontinued Reason: Pt stopped taking med Unable to Obtain Medications (Unable To Obtain Meds), (Reported) Discontinued Reason: Pt stopped taking med [Spironalactone], (Reported) Discontinued Reason: Pt stopped taking med Patient History History Provided By: Patient, Significant Other, PMD Healthcare decision maker N Resuscitation status Full Code Advanced Directive on File Past Medical/Surgical History Past Medical/Surgical History: (1) [id number] (2) [id number] (3) Dizziness (4) Failure to thrive (5) Dehydration (6) failure thrived (7) Ascites (8) [id number] (9) [id number] (10) Failure to thrive (11) Malnutrition (12) Ascites (13) Ascites (14) Hiatal hernia (15) Weakness (16) failure thrived (17) liver cirrhosis (18) Altered mental status (19) liver cirrhosis (20) History of seizure (21) HTN (hypertension), malignant (22) noncompliance (23) chronic seizure disorder. exacerbation (24) Anemia (25) Combative behavior Review of Systems Psychiatric: Reports: prior hx, anxiety, depressed feelings, emotional problems Physical Exam General Appearance: no apparent distress, alert Neurologic: alert, oriented x 3, responsive, normal mood/affect Last 24 Hour Vital Signs Date Time Temp Pulse Resp B/P (MAP) Pulse Ox O2 Delivery O2 Flow Rate FiO2 05/20/17 11:45 98.4 91 18 152/87 97 Room Air 05/20/17 11:09 87 148/88 05/20/17 08:30 98.2 85 17 142/85 97 Room Air 05/20/17 04:45 98.7 81 19 138/86 96 Room Air 05/20/17 00:53 98.2 99 21 140/92 99 Room Air 05/19/17 20:57 98.4 94 20 144/90 98 Room Air Height (Feet): 5 Height (Inches): 9.00 Weight (Pounds): 175 Medications Current Medications Medications (Trade) Dose Ordered Sig/Yoanna Route PRN Reason Start Time Stop Time Status Last Admin Dose Admin Acetaminophen (Tylenol) 650 mg Q4H PRN ORAL fever 05/18/17 21:30 06/17/17 21:29 05/19/17 06:11 Al Hydroxide/Mg Hydroxide (Mylanta II) 30 ml Q6H PRN ORAL dyspepsia 05/18/17 21:30 06/17/17 21:29 Amlodipine Besylate (Norvasc) 5 mg DAILY ORAL 05/20/17 09:00 06/19/17 08:59 05/20/17 11:09 Dextrose (Dextrose 50%) STAT PRN IV Hypoglycemia 05/18/17 21:30 06/17/17 21:29 Divalproex Sodium (Depakote ER) 750 mg QHS ORAL 05/20/17 21:00 06/19/17 20:59 Haloperidol Lactate (Haldol) 5 mg Q2H PRN IM agitation 05/20/17 07:00 06/19/17 06:59 Heparin Sodium (Porcine) (Heparin 5000 units/ml) 5,000 units EVERY 12 HOURS SUBQ 05/19/17 09:00 06/18/17 08:59 Levetiracetam (Keppra) 1,000 mg Q12HR ORAL 05/19/17 21:00 06/18/17 20:59 05/20/17 11:09 Lorazepam (Ativan 2mg/ml 1ml) 2 mg Q4H PRN IV seizure 05/19/17 13:30 05/26/17 13:29 05/19/17 23:38 Morphine Sulfate (Morphine Sulfate) 4 mg Q4H PRN IVP For Pain 05/19/17 09:30 05/26/17 09:29 Olanzapine (ZyPREXA) 10 mg QHS ORAL 05/20/17 21:00 06/19/17 20:59 Ondansetron HCl (Zofran) 4 mg Q6H PRN IVP Nausea & Vomiting 05/18/17 21:30 06/17/17 21:29 05/19/17 00:56 Polyethylene Glycol (Miralax) 17 gm HSPRN PRN ORAL Constipation 05/18/17 21:30 06/17/17 21:29 Quetiapine Fumarate (SEROquel) 25 mg Q12HR ORAL 05/20/17 14:45 06/19/17 14:44 05/20/17 16:17 Zolpidem Tartrate (Ambien) 5 mg HSPRN PRN ORAL Insomnia 05/18/17 21:30 05/25/17 21:29 05/19/17 23:47 Assessment/Plan Assessment/Plan psychotic d/o depakote Thu Trevino M.D. May 20, 2017 16:25
[2017-05-20] MEDS: Depakote ER 250mg tab ORAL SCH (20:26)
[2017-05-20 20:34] VITALS: BP 147/94
[2017-05-21 00:24] VITALS: BP 140/80
[2017-05-21 04:36] VITALS: BP 143/88
[2017-05-21 08:25] VITALS: BP 142/98
[2017-05-21] MEDS: Heparin 5000 units/ml inj SUBQ SCH (09:00)
[2017-05-21] MEDS ORDERED: SEROQUEL25 MG ORAL (10:40)
[2017-05-21] MEDS ORDERED: DEPAKOTE ER250 MG ORAL (10:40)
[2017-05-21] MEDS ORDERED: OLANZAPINE5 MG ORAL (10:40)
[2017-05-21] MEDS ORDERED: KEPPRA500 M3 ORAL (10:40)
--- NOTE | 2017-05-21 10:42 | Pulmonology Progress Note ---
Assessment/Plan Problems: (1) Altered mental status (2) liver cirrhosis (3) History of seizure Assessment/Plan psych and neuro evaluation appreciated all reviewed dc home with close f/u with PMD prescription given Subjective ROS Limited/Unobtainable: No Interval Events: no seizures, feeling uch better Allergies: Coded Allergies: No Known Allergies (Verified , 02/18/06) Objective Last 24 Hour Vital Signs Date Time Temp Pulse Resp B/P (MAP) Pulse Ox O2 Delivery O2 Flow Rate FiO2 05/21/17 10:16 93 142/98 05/21/17 08:25 97.7 93 20 142/98 100 05/21/17 04:36 98.1 90 17 143/88 98 05/21/17 00:24 97.9 92 18 140/80 96 Room Air 05/20/17 20:34 98.1 114 17 147/94 100 Room Air 05/20/17 16:00 98.0 87 18 144/93 97 Room Air 05/20/17 11:45 98.4 91 18 152/87 97 Room Air 05/20/17 11:09 87 148/88 Intake and Output 05/21/17 05/22/17 19:00 07:00 Intake Total 420 ml Balance 420 ml Intake Oral 420 ml # Voids 1 General Appearance: WD/WN HEENT: normocephalic, anicteric Respiratory/Chest: chest wall non-tender, normal breath sounds Cardiovascular: normal peripheral pulses, normal rate Abdomen: normal bowel sounds, soft, non tender Genitourinary: normal external genitalia Skin: no rash Current Medications Medications (Trade) Dose Ordered Sig/Yoanna Route PRN Reason Start Time Stop Time Status Last Admin Dose Admin Acetaminophen (Tylenol) 650 mg Q4H PRN ORAL fever 05/18/17 21:30 06/17/17 21:29 05/19/17 06:11 Al Hydroxide/Mg Hydroxide (Mylanta II) 30 ml Q6H PRN ORAL dyspepsia 05/18/17 21:30 06/17/17 21:29 Amlodipine Besylate (Norvasc) 5 mg DAILY ORAL 05/20/17 09:00 06/19/17 08:59 05/21/17 10:16 Dextrose (Dextrose 50%) STAT PRN IV Hypoglycemia 05/18/17 21:30 06/17/17 21:29 Divalproex Sodium (Depakote ER) 750 mg QHS ORAL 05/20/17 21:00 06/19/17 20:59 05/20/17 20:26 Haloperidol Lactate (Haldol) 5 mg Q2H PRN IM agitation 05/20/17 07:00 06/19/17 06:59 Heparin Sodium (Porcine) (Heparin 5000 units/ml) 5,000 units EVERY 12 HOURS SUBQ 05/19/17 09:00 06/18/17 08:59 Levetiracetam (Keppra) 1,000 mg Q12HR ORAL 05/19/17 21:00 06/18/17 20:59 05/21/17 10:16 Lorazepam (Ativan 2mg/ml 1ml) 2 mg Q4H PRN IV seizure 05/19/17 13:30 05/26/17 13:29 05/19/17 23:38 Morphine Sulfate (Morphine Sulfate) 4 mg Q4H PRN IVP For Pain 05/19/17 09:30 05/26/17 09:29 Olanzapine (ZyPREXA) 10 mg QHS ORAL 05/20/17 21:00 06/19/17 20:59 05/20/17 20:26 Ondansetron HCl (Zofran) 4 mg Q6H PRN IVP Nausea & Vomiting 05/18/17 21:30 06/17/17 21:29 05/19/17 00:56 Polyethylene Glycol (Miralax) 17 gm HSPRN PRN ORAL Constipation 05/18/17 21:30 06/17/17 21:29 Quetiapine Fumarate (SEROquel) 25 mg Q12HR ORAL 05/20/17 14:45 06/19/17 14:44 05/21/17 10:16 Zolpidem Tartrate (Ambien) 5 mg HSPRN PRN ORAL Insomnia 05/18/17 21:30 05/25/17 21:29 05/19/17 23:47 LAURA CHAMPION May 21, 2017 10:42
[2017-05-21 12:33] VITALS: BP 141/97
[2017-05-21 16:07] VITALS: BP 122/82
[2017-05-21 20:00] VITALS: BP 132/80
[2017-05-21] MEDS: Depakote ER 250mg tab ORAL SCH (21:05)
[2017-05-22] VITALS: BP 159/95
[2017-05-22] MEDS: Zolpidem 5mg tab ORAL PRN (02:44)
[2017-05-22 04:00] VITALS: BP 154/95
--- NOTE | 2017-05-22 07:12 | General Progress Note ---
Assessment/Plan Problem List: (1) Hiatal hernia (2) Ascites (3) HTN (hypertension), malignant ICD Codes: I10 - Essential (primary) hypertension SNOMED: 16004359 (4) chronic seizure disorder. exacerbation (5) Anemia (6) liver cirrhosis Assessment/Plan stable labs tolerating diet pending possible dc today Subjective ROS Limited/Unobtainable: Yes Allergies: Coded Allergies: No Known Allergies (Verified , 02/18/06) Subjective wants to go home Objective Last 24 Hour Vital Signs Date Time Temp Pulse Resp B/P (MAP) Pulse Ox O2 Delivery O2 Flow Rate FiO2 05/22/17 04:00 98.0 96 20 154/95 98 Room Air 05/22/17 00:00 98.2 96 20 159/95 99 Room Air 05/21/17 20:00 98.7 99 22 132/80 97 Room Air 05/21/17 16:07 97.6 94 20 122/82 96 05/21/17 12:33 98.1 88 20 141/97 100 05/21/17 10:16 93 142/98 05/21/17 08:25 97.7 93 20 142/98 100 Height (Feet): 5 Height (Inches): 9.00 Weight (Pounds): 175 General Appearance: alert EENT: normal ENT inspection Neck: supple Cardiovascular: normal rate Respiratory/Chest: decreased breath sounds Abdomen: normal bowel sounds, non tender, soft Extremities: non-tender TASH DAO May 22, 2017 07:12
[2017-05-22 08:00] VITALS: BP 133/92
[2017-05-22 08:25] VITALS: BP 133/92
--- NOTE | 2017-05-22 11:33 | Pulmonology Progress Note ---
Assessment/Plan Problems: (1) Altered mental status (2) liver cirrhosis (3) History of seizure Assessment/Plan all reviewed dc home with close f/u with PMD prescription given Subjective ROS Limited/Unobtainable: No Constitutional: Reports: no symptoms HEENT: Repors: no symptoms Respiratory: Reports: no symptoms Allergies: Coded Allergies: No Known Allergies (Verified , 02/18/06) Objective Last 24 Hour Vital Signs Date Time Temp Pulse Resp B/P (MAP) Pulse Ox O2 Delivery O2 Flow Rate FiO2 05/22/17 08:25 116 133/92 05/22/17 08:00 99.3 116 20 133/92 99 Room Air 05/22/17 04:00 98.0 96 20 154/95 98 Room Air 05/22/17 00:00 98.2 96 20 159/95 99 Room Air 05/21/17 20:00 98.7 99 22 132/80 97 Room Air 05/21/17 16:07 97.6 94 20 122/82 96 05/21/17 12:33 98.1 88 20 141/97 100 HEENT: normocephalic, atraumatic Respiratory/Chest: chest wall non-tender, lungs clear Cardiovascular: normal peripheral pulses, normal rate Abdomen: normal bowel sounds, soft, non tender Genitourinary: normal external genitalia Extremities: no cyanosis Skin: no rash 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, normal mood/affect Current Medications Medications (Trade) Dose Ordered Sig/Yoanna Route PRN Reason Start Time Stop Time Status Last Admin Dose Admin Acetaminophen (Tylenol) 650 mg Q4H PRN ORAL fever 05/18/17 21:30 06/17/17 21:29 05/19/17 06:11 Al Hydroxide/Mg Hydroxide (Mylanta II) 30 ml Q6H PRN ORAL dyspepsia 05/18/17 21:30 06/17/17 21:29 Amlodipine Besylate (Norvasc) 5 mg DAILY ORAL 05/20/17 09:00 06/19/17 08:59 05/22/17 08:25 Dextrose (Dextrose 50%) STAT PRN IV Hypoglycemia 05/18/17 21:30 06/17/17 21:29 Divalproex Sodium (Depakote ER) 750 mg QHS ORAL 05/20/17 21:00 06/19/17 20:59 05/21/17 21:05 Haloperidol Lactate (Haldol) 5 mg Q2H PRN IM agitation 05/20/17 07:00 06/19/17 06:59 05/22/17 10:40 Levetiracetam (Keppra) 1,000 mg Q12HR ORAL 05/19/17 21:00 06/18/17 20:59 05/22/17 08:25 Lorazepam (Ativan 2mg/ml 1ml) 2 mg Q4H PRN IV seizure 05/19/17 13:30 05/26/17 13:29 05/19/17 23:38 Morphine Sulfate (Morphine Sulfate) 4 mg Q4H PRN IVP For Pain 05/19/17 09:30 05/26/17 09:29 Olanzapine (ZyPREXA) 10 mg QHS ORAL 05/20/17 21:00 06/19/17 20:59 05/21/17 21:06 Ondansetron HCl (Zofran) 4 mg Q6H PRN IVP Nausea & Vomiting 05/18/17 21:30 06/17/17 21:29 05/19/17 00:56 Polyethylene Glycol (Miralax) 17 gm HSPRN PRN ORAL Constipation 05/18/17 21:30 06/17/17 21:29 Quetiapine Fumarate (SEROquel) 25 mg Q12HR ORAL 05/20/17 14:45 06/19/17 14:44 05/22/17 08:25 Zolpidem Tartrate (Ambien) 5 mg HSPRN PRN ORAL Insomnia 05/18/17 21:30 05/25/17 21:29 05/22/17 02:44 LAURA CHAMPION May 22, 2017 11:33
[2017-05-25] MEDS ORDERED: NORVASC5 MG ORAL (08:38)
--- NOTE | 2017-05-25 08:45 | Discharge Summary ---
Discharge Summary Hospital Course Date of Admission May 18, 2017 at 19:57 Date of Discharge May 22, 2017 at 12:00 Admitting Diagnosis ams HPI Mode Gordon is a 62 year old male who was admitted on May 18, 2017 at 19:57 for Altered Mental Status Hospital Course dc summary #[id number] Discharge Medications New Medications: Amlodipine Besylate (Norvasc) 5 Mg Tablet 5 MG ORAL DAILY, #30 TAB Divalproex Sodium* (Depakote Er*) 250 Mg Tab.er.24h 750 MG ORAL QHS for 30 Days, TAB Levetiracetam (Levetiracetam) 500 Mg Tablet 1000 MG ORAL Q12HR for 60 Days, TAB Olanzapine (Olanzapine) 5 Mg Tablet 10 MG ORAL QHS for 30 Days, TAB Quetiapine Fumarate* (Seroquel*) 25 Mg Tablet 25 MG ORAL Q12HR for 30 Days, TAB Discontinued Medications: No Known Medications* (NKM - No Known Medications*) . 0 ., 0 Refills Discharge Condition Upon Discharge: stable Discharge Disposition Patient was discharged home Discharge Diagnoses: Discharge Instructions Discharge Instructions Special Instructions I have been assigned to complete a D/C Summary on this account. I was not involved in the patient management Becky Fernandez NP ([place]) May 25, 2017 08:45
--- NOTE | 2017-05-25 16:15 | Discharge Summary 2 SIG ---
DATE OF ADMISSION: 05/18/2017 DATE OF DISCHARGE: 05/22/2017 REASON FOR ADMISSION: 62-year-old male with history of hypertension and anemia, brought in to the emergency department by paramedics. Apparently, the patient was found on the ground. He was awake, but unable to provide any information. The patient stated he lives alone. Denied having any medical problems, but reported history of seizure in the past. He was oriented to person only and at that time denied any complaint. Denied headache, blurry vision, nausea, vomiting, chest pain, or shortness of breath. Vital signs revealed elevated blood pressure- 160/100, otherwise, vital signs were stable. CT of the head revealed no acute intracranial pathology, but demonstrated evidence of chronic ischemic cardiovascular disease. Urine toxicology screen was negative. The patient remained hemodynamically stable during the ED stay, but remained confused. EKG revealed normal sinus rhythm, no acute ischemic changes. Troponin negative. Glucose level -110. The patient was admitted for further management with diagnoses of altered mental status and history of seizure. HOSPITAL STAY: The patient was admitted. Neurology consult was requested initially. Neurologist diagnosed the patient with exacerbation of seizure disorder secondary to noncompliance, started the patient on Keppra. He also stated the patient had chronic psychiatric disorder with cognitive loss and started the patient on Seroquel. He recommended psychiatric evaluation. Subsequently, psychiatric evaluation was done. The patient was started on extended dose of Depakote and Zyprexa. Blood pressure was controlled with calcium channel des and was stable. The patient was encouraged compliance with medication regimen. Seizure precautions were maintained. No seizure activities while in the hospital. The patient with apparently known history of liver cirrhosis. GI consult was requested. GI seen and evaluated the patient. On previous admission, hepatitis panel was negative. HIV test was negative. LFT and bilirubin were closely monitored. Hemoglobin and hematocrit were closely monitored, stable. The patient was started on PPI. Bowel regimen was provided. Diet was slowly advanced. Ammonia -42, with mild elevation. Lactulose was added. Magnesium was stable. Direct bilirubin within normal limits. Elevated AST- 51 with normal ALT -24. Liver parameters were trended, no significant change. DVT prophylaxis provided. Supportive care and symptomatic treatment were provided. The patient was stable for discharge home and follow up with primary medical doctor. Encouraged compliance with medication regimen. FINAL DIAGNOSES: 1. Altered mental status possibly due to acute toxic metabolic encephalopathy (due to seizure exacerbation, psychiatric disorder, and liver cirrhosis). 2. Chronic seizure disorder exacerbation secondary to noncompliance. 3. Chronic psychiatric disorder with cognitive loss. 4. Ischemic cardiovascular disease. 5. Likely hypertensive angiopathy. 6. Hypertensive urgency. 7. Liver cirrhosis DISCHARGE MEDICATIONS: See medication reconciliation list. DISCHARGE INSTRUCTIONS: The patient was discharged home. Follow up with primary medical doctor. Venus Garcia M.D. I have been assigned to dictate discharge summary on this account and I was not involved in the patient's management. Becky ChavezDannemora State Hospital For The Criminally InsaneJavier N.PPatti DR: LUDY JOB#: [id number] CC: JESSICA
== END 2017-05-22 12:00 | disposition home or self-care (01) | DRG 100 ==
LOC: EDBD 17:39 → EMR 18:16 → 3E 19:57 → EDBEDREQ 21:04 → 3E 22:40
DX: G40.909 Epilepsy, unspecified, not intractable, without status epilepticus (principal); G92 Toxic encephalopathy; D69.6 Thrombocytopenia, unspecified; K74.60 Unspecified cirrhosis of liver; Z91.14 Patient's other noncompliance with medication regimen; F99 Mental disorder, not otherwise specified; I25.10 Atherosclerotic heart disease of native coronary artery without angina pectoris; I16.0 Hypertensive urgency; I99.8 Other disorder of circulatory system; D63.8 Anemia in other chronic diseases classified elsewhere; F10.21 Alcohol dependence, in remission; K44.9 Diaphragmatic hernia without obstruction or gangrene; D64.9 Anemia, unspecified
CPT/HCPCS: 36415; 36600; 70450; 80053; 80299; 80307; 80329; 81003; 82140; 82248; 82550; 82803; 83735; 84100; 85007; 85025; 85610; 85730; 93005; 99285; J2405

== ENCOUNTER 2018-11-02 17:45 | Emergency (ER) | payer MEDICAID ==
[~2018-11-02] VITALS: Ht 182.9 cm; Wt 90.7 kg
[~2018-11-02 17:45] MED LIST changes: +DEPAKOTE ER250 MG ORAL; +KEPPRA500 M3 ORAL; +NORVASC5 MG ORAL; +OLANZAPINE5 MG ORAL; +SEROQUEL25 MG ORAL
[2018-11-02 17:50] VITALS: BP 215/116
--- NOTE | 2018-11-02 17:50 | NUR ---
ED Nurse Note: Pt from home brought in by RA 70 d/t seizure activity around 1730 and witnessed by his neighbor. No head or oral trauma but has urine incontinence. BP 215/116 and with hx of HTN but not compliant with meds. Pt is AAO x4, follows commands with non labored breathing.
[2018-11-02] MEDS ORDERED: LORazepam Inj 2mg/ml 1ml IV ONE (18:00)
--- NOTE | 2018-11-02 18:00 | Emergency Room Report ---
History of Present Illness General Chief Complaint: Seizure Source: Patient, Medical Record Present Illness HPI This is a 63-year-old male brought in by EMS after witnessed seizure. Patient had prior history of alcohol abuse. He had witnessed seizure lasting several minutes. Patient was noted to have some increased tremulousness. He denies prior seizures.Patient denies any recent medications and states he is been noncompliant. Patient cannot recall what his medications are. History is limited by poor historian. Allergies: Coded Allergies: No Known Allergies (Verified , 02/18/06) Patient History Past Medical History: see triage record, seizures Reviewed Nursing Documentation: PMH: Agreed; PSxH: Agreed Nursing Documentation-PMH Past Medical History: No History, Except For Hx Cardiac Problems: Yes Hx Hypertension: Yes Hx Asthma: Yes Hx Cancer: No Hx Gastrointestinal Problems: Yes Hx Neurological Problems: Yes - altered mental status Hx Seizures: Yes Hx Weakness: Yes Review of Systems Skin: Reports: no symptoms All Other Systems: negative except mentioned in HPI Physical Exam Vital Signs Date Time Temp Pulse Resp B/P (MAP) Pulse Ox O2 Delivery O2 Flow Rate FiO2 11/02/18 17:40 119 16 98 Room Air Sp02 EP Interpretation: reviewed, normal General Appearance: normal inspection, well appearing, no apparent distress, alert, GCS 15 Head: atraumatic ENT: normal ENT inspection, hearing grossly normal, normal voice Neck: normal inspection, full range of motion, supple, no bony tend Respiratory: normal inspection, lungs clear, normal breath sounds, no respiratory distress, no retraction, no wheezing Cardiovascular #1: regular rate, rhythm, no edema Gastrointestinal: normal inspection, normal bowel sounds, non tender, soft, no guarding, no hernia Genitourinary: no CVA tenderness Musculoskeletal: normal inspection, back normal, normal range of motion Neurologic: normal inspection, alert, oriented x3, 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 exacerbation ER Course Patient presented for seizure. Differential diagnosis include was not limited to medication withdrawal, substance abuse, intracranial hemorrhage, among others. Because of complexity of patient's case laboratory testing and imaging studies were ordered.Patient was noted to have prior history of alcohol abuse. He was given IV Ativan. Patient reports having prior seizure disorder but cannot recall what his medications are. He was given IV Keppra. patient was given prescription for further medications. He was advised to return if he had any worsening of condition or other concerns.The time of discharge patient was ambulatory without assistance. Patient was advised not to drive or operate heavy machinery. Patient was given prescriptions for Keppra as well as Norvasc. Labs Test 11/02/18 18:17 11/02/18 19:20 White Blood Count 7.0 K/UL (4.8-10.8) Red Blood Count 4.94 M/UL (4.70-6.10) Hemoglobin 14.6 G/DL (14.2-18.0) Hematocrit 43.9 % (42.0-52.0) Mean Corpuscular Volume 89 FL (80-99) Mean Corpuscular Hemoglobin 29.6 PG (27.0-31.0) Mean Corpuscular Hemoglobin Concent 33.3 G/DL (32.0-36.0) Red Cell Distribution Width 15.2 % (11.6-14.8) Platelet Count 94 K/UL (150-450) Mean Platelet Volume 5.4 FL (6.5-10.1) Neutrophils (%) (Auto) 82.3 % (45.0-75.0) Lymphocytes (%) (Auto) 11.2 % (20.0-45.0) Monocytes (%) (Auto) 5.2 % (1.0-10.0) Eosinophils (%) (Auto) 0.8 % (0.0-3.0) Basophils (%) (Auto) 0.6 % (0.0-2.0) Urine Color Yellow Urine Appearance Clear Urine pH 6 (4.5-8.0) Urine Specific [place]ink 1.015 (1.005-1.035) Urine Protein 4+ (NEGATIVE) Urine Glucose (UA) Negative (NEGATIVE) Urine Ketones 1+ (NEGATIVE) Urine Blood 4+ (NEGATIVE) Urine Nitrite Negative (NEGATIVE) Urine Bilirubin Negative (NEGATIVE) Urine Urobilinogen 1 MG/DL (0.0-1.0) Urine Leukocyte Esterase Negative (NEGATIVE) Urine RBC 5-10 /HPF (0 - 0) Urine WBC 0 /HPF (0 - 0) Urine Squamous Epithelial Cells None /LPF (NONE/OCC) Urine Bacteria Few /HPF (NONE) Urine Opiates Screen Negative (NEGATIVE) Urine Barbiturates Screen Negative (NEGATIVE) Phencyclidine (PCP) Screen Negative (NEGATIVE) Urine Amphetamines Screen Negative (NEGATIVE) Urine Benzodiazepines Screen Negative (NEGATIVE) Urine Cocaine Screen Negative (NEGATIVE) Urine Marijuana (THC) Screen Negative (NEGATIVE) Sodium Level 141 MMOL/L (136-145) Potassium Level 4.5 MMOL/L (3.5-5.1) Chloride Level 104 MMOL/L (98-107) Carbon Dioxide Level 22 MMOL/L (21-32) Anion Gap 15 mmol/L (5-15) Blood Urea Nitrogen 6 mg/dL (7-18) Creatinine 1.4 MG/DL (0.55-1.30) Estimat Glomerular Filtration Rate > 60 mL/min (>60) Glucose Level 149 MG/DL (74-106) Calcium Level 8.7 MG/DL (8.5-10.1) Total Bilirubin 1.3 MG/DL (0.2-1.0) Direct Bilirubin 0.3 MG/DL (0.0-0.3) Aspartate Amino Transf (AST/SGOT) 56 U/L (15-37) Alanine Aminotransferase (ALT/SGPT) 40 U/L (12-78) Alkaline Phosphatase 185 U/L (46-116) Troponin I 0.010 ng/mL (0.000-0.056) Total Protein 7.2 G/DL (6.4-8.2) Albumin 3.3 G/DL (3.4-5.0) Globulin 3.9 g/dL Albumin/Globulin Ratio 0.8 (1.0-2.7) EKG Diagnostic Results Rate: tachycardiac Rhythm: NSR - 106 ST Segments: no acute changes Last Vital Signs Date Time Temp Pulse Resp B/P (MAP) Pulse Ox O2 Delivery O2 Flow Rate FiO2 11/02/18 17:40 119 16 98 Room Air Status: improved Disposition: HOME, SELF-CARE Condition: Improved Scripts Amlodipine Besylate (Norvasc) 5 Mg Tablet 5 MG ORAL DAILY, #30 TAB Prov: Rudolph Galvan MD 11/02/18 Levetiracetam (KEPPRA) 1,000 Mg Tablet 1000 MG ORAL EVERY 12 HOURS, #30 TAB 0 Refills Prov: Rudolph Galvan MD 11/02/18 Rudolph Galvan MD November 02, 2018 18:00
--- NOTE | 2018-11-02 18:39 | NUR ---
ED Nurse Note: Blood and urine specimen sent.
[2018-11-02 18:42] LABS: HEMATOCRIT 43.9 % (42.0-52.0); HEMOGLOBIN 14.6 G/DL (14.2-18.0); MEAN CORPUSCULAR VOLUME 89 FL (80-99); PLATELET COUNT 94 K/UL (150-450); RED BLOOD COUNT 4.94 M/UL (4.70-6.10); RED CELL DISTRIBUTION WIDTH 15.2 % (11.6-14.8)
[2018-11-02 18:43] LABS: BASOPHILS % (AUTO) 0.6 % (0.0-2.0); EOSINOPHILS % (AUTO) 0.8 % (0.0-3.0); LYMPHOCYTES % (AUTO) 11.2 % (20.0-45.0); MONOCYTES % (AUTO) 5.2 % (1.0-10.0); NEUTROPHILS % (AUTO) 82.3 % (45.0-75.0)
[2018-11-02 18:47] LABS: APPEARANCE,URINE CLEAR; BILIRUBIN, URINE NEGATIVE (NEGATIVE); GLUCOSE, URINE (UA) NEGATIVE (NEGATIVE); KETONES,URINE 1+ (NEGATIVE); LEUKOCYTE ESTERASE ,URINE NEGATIVE (NEGATIVE); NITRITE,URINE NEGATIVE (NEGATIVE); PH,URINE 6 (4.5-8.0); PROTEIN,URINE 4+ (NEGATIVE); UROBILINOGEN,URINE 1 MG/DL (0.0-1.0)
[2018-11-02 18:48] LABS: COLOR,URINE YELLOW
--- NOTE | 2018-11-02 19:09 | NUR ---
ED Nurse Note: Labs called for CMP redrawn.
--- NOTE | 2018-11-02 19:11 | NUR ---
HAND-OFF: Report given to Kristin SELLERS.
[2018-11-02] MEDS ORDERED: KEPPRA1000 MG ORAL (19:13)
[2018-11-02] MEDS ORDERED: NORVASC5 MG ORAL (19:13)
[2018-11-02] MEDS ORDERED: levETIRAcetam 500mg/NS100ml 100 ML IVPB ONE (19:15)
--- NOTE | 2018-11-02 19:17 | NUR ---
ED Nurse Note: Received report from Beatrice SELLERS. Pt in bed awake, resting, c/o headache 04/07. Pt's needs met. IVF running at prescribed rate. Gurney in lowest position with seizure precautions in place. Will continue to monitor and carry out ER MD's orders.
[2018-11-02 19:51] VITALS: BP 150/106
--- NOTE | 2018-11-02 20:00 | NUR ---
ED Nurse Note: Taxi called, they will be here in about 20 mins.
[2018-11-02 20:06] LABS: ANION GAP 15 mmol/L (5-15); BLOOD UREA NITROGEN 6 mg/dL (7-18); CALCIUM 8.7 MG/DL (8.5-10.1); CARBON DIOXIDE 22 MMOL/L (21-32); CHLORIDE 104 MMOL/L (98-107); CREATININE 1.4 MG/DL (0.55-1.30); POTASSIUM 4.5 MMOL/L (3.5-5.1); SODIUM 141 MMOL/L (136-145)
[2018-11-02 20:16] LABS: ALANINE AMINOTRANSFERASE 40 U/L (12-78); ALBUMIN 3.3 G/DL (3.4-5.0); ALBUMIN/GLOBULIN RATIO 0.8 (1.0-2.7); ALKALINE PHOSPHATASE 185 U/L (46-116); ASPARTATE AMINO TRANSFERASE 56 U/L (15-37); BILIRUBIN,TOTAL 1.3 MG/DL (0.2-1.0)
--- NOTE | 2018-11-02 20:17 | NUR ---
ED Nurse Note: Pt cleared by health care Provider for discharge. DC instructions/prescription was given and explained to pt and verbalized understanding of teachings. All medical deviecs such as ID band removed. Pt is AAO x4, ambulatory and left with all personal belongings via taxi voucher.
[2018-11-02 20:18] LABS: BILIRUBIN,DIRECT 0.3 MG/DL (0.0-0.3)
--- NOTE | 2018-11-03 08:34 | Diagnostic Imaging Report ---
Indication: Seizure Technique: Continuous helical CT scanning of the head was performed utilizing automated exposure control without intravenous contrast material. Axial and coronal reconstructions were obtained. Comparison: 05/18/2017 CT dose: Total DLP 1393.68 mGycm; CTDI vol 70.38 mGy Findings: There is no acute intracranial hemorrhage, mass effect or cortical edema. There is no shift of midline structures. The ventricles, cisterns and sulci are prominent consistent with atrophy. Overall size of the ventricles is stable compared to the prior exam. Periventricular hypoattenuation is seen, a nonspecific finding. Visualized mastoid air cells and paranasal sinuses are unremarkable. No focal lesions of the bony calvarium or soft tissues of the scalp are seen. Impression: No evidence of acute intracranial hemorrhage, mass effect or cortical edema. MRI may be obtained for more sensitive evaluation as clinically indicated. Atrophy and nonspecific periventricular hypoattenuation suggestive of chronic ischemic microvascular changes. This corresponds with the preliminary report. The CT scanner at [facility] is accredited by the [employer] and the scans are performed using protocols designed to limit radiation exposure to as low as reasonably achievable to attain images of sufficient resolution adequate for diagnostic evaluation.
--- NOTE | 2018-11-03 14:27 | Cardiology Report ---
APPROVED REPORT EKG Measurement Heart [id number] NM [id number] Sinus tachycardia Possible Inferior infarct, age undetermined Possible Anterior infarct, age undetermined Abnormal ECG
== END 2018-11-02 20:17 | disposition home or self-care (01) ==
LOC: EDBD 17:45 → EMR 18:14
DX: G40.909 Epilepsy, unspecified, not intractable, without status epilepticus (principal); Z91.14 Patient's other noncompliance with medication regimen; I10 Essential (primary) hypertension; R00.0 Tachycardia, unspecified
CPT/HCPCS: 36415; 70450; 80053; 80307; 81003; 82248; 82962; 84484; 85025; 93005; 96374; 96375; 99284; J1953; J7040

== ENCOUNTER 2019-03-22 16:41 | Emergency (ER) | payer SELFPAY ==
[~2019-03-22] VITALS: Ht 185.4 cm; Wt 97.5 kg
[~2019-03-22 16:41] MED LIST changes: +KEPPRA1000 MG ORAL
[2019-03-22 16:45] VITALS: BP 206/109
--- NOTE | 2019-03-22 16:45 | NUR ---
ED Nurse Note: Pt is AAOX3, VSS with no acute distress. Pt arrives via lafd from home with c/o witnessed tonic clonic seizure 23 sec. long. Pt denies pain no incontinence. arrives a/o to self an place.
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
[2019-03-22] MEDS ORDERED: levETIRAcetam 1,000 MG in D5W 110 ML IV ONE (17:00)
[2019-03-22 17:48] LABS: BASOPHILS % (AUTO) 0.9 % (0.0-2.0); EOSINOPHILS % (AUTO) 0.7 % (0.0-3.0); HEMOGLOBIN 13.7 G/DL (14.2-18.0); MEAN CORPUSCULAR VOLUME 95 FL (80-99); MONOCYTES % (AUTO) 4.1 % (1.0-10.0); NEUTROPHILS % (AUTO) 86.3 % (45.0-75.0); PLATELET COUNT 104 K/UL (150-450); RED BLOOD COUNT 4.32 M/UL (4.70-6.10); WHITE BLOOD COUNT 8.2 K/UL (4.8-10.8)
[2019-03-22 17:56] LABS: ANION GAP 17 mmol/L (5-15); BLOOD UREA NITROGEN 11 mg/dL (7-18); CALCIUM 9.2 MG/DL (8.5-10.1); CARBON DIOXIDE 18 MMOL/L (21-32); CHLORIDE 103 MMOL/L (98-107); CREATININE 1.2 MG/DL (0.55-1.30); POTASSIUM 4.2 MMOL/L (3.5-5.1); SODIUM 138 MMOL/L (136-145)
[2019-03-22 18:09] LABS: ALANINE AMINOTRANSFERASE 24 U/L (12-78); ALBUMIN 3.3 G/DL (3.4-5.0); ALBUMIN/GLOBULIN RATIO 0.8 (1.0-2.7); ALKALINE PHOSPHATASE 160 U/L (46-116); ASPARTATE AMINO TRANSFERASE 40 U/L (15-37); BILIRUBIN,TOTAL 1.5 MG/DL (0.2-1.0); CKMB 1.1 NG/ML (0.0-3.6); CREATINE KINASE 117 U/L (26-308)
[2019-03-22 18:33] LABS: BILIRUBIN,DIRECT 0.2 MG/DL (0.0-0.3)
[2019-03-22 18:52] LABS: APPEARANCE,URINE CLOUDY; BILIRUBIN, URINE NEGATIVE (NEGATIVE); GLUCOSE, URINE (UA) NEGATIVE (NEGATIVE); KETONES,URINE 2+ (NEGATIVE); LEUKOCYTE ESTERASE ,URINE 3+ (NEGATIVE); NITRITE,URINE POSITIVE (NEGATIVE); PH,URINE 5 (4.5-8.0); PROTEIN,URINE 3+ (NEGATIVE); UROBILINOGEN,URINE 1 MG/DL (0.0-1.0)
[2019-03-22 18:55] LABS: COLOR,URINE YELLOW
[2019-03-22] MEDS ORDERED: Lidocaine 1% MPF 10mg/ml 5ml INJ ONE (19:15)
[2019-03-22] MEDS ORDERED: KEPPRA1000 MG ORAL (19:19)
[2019-03-22] MEDS ORDERED: CEPHALEXIN500 MG ORAL (19:19)
[2019-03-22 19:40] VITALS: BP 153/93
--- NOTE | 2019-03-22 19:40 | NUR ---
ER DISCHARGE NOTE: Patient is cleared to be discharged per ERMD, pt is aox4, on room air, with stable vital signs. pt was given dc and prescription instructions, pt was able to verbalize understanding, pt id band and iv site removed without complications. pt is able to ambulate with steady gait. pt took all belongings.
--- NOTE | 2019-03-23 14:57 | Cardiology Report ---
APPROVED REPORT EKG Measurement Heart [id number] Normal sinus rhythm Inferior infarct, age undetermined Anterolateral infarct, age undetermined Abnormal ECG
== END 2019-03-22 19:40 | disposition home or self-care (01) ==
LOC: EDBD 16:41 → EMR 17:30
DX: G40.409 Other generalized epilepsy and epileptic syndromes, not intractable, without status epilepticus (principal); I10 Essential (primary) hypertension; J45.909 Unspecified asthma, uncomplicated; N39.0 Urinary tract infection, site not specified; Z91.14 Patient's other noncompliance with medication regimen
CPT/HCPCS: 36415; 80053; 80307; 81003; 82248; 82550; 82553; 82962; 84484; 85025; 87086; 93005; 96361; 96372; 96374; 96375; 99284; G0480; J0696; J1953; 80329